=== PATIENT | male | born 1950 | race Caucasian/White ===

== ENCOUNTER 2023-10-28 11:14 | Day surgery (SDC) | payer OTHER ==
[2023-10-20 15:51] VITALS: BMI 24.5
[2023-10-28] MEDS ORDERED: MIDAZOLAM HCL 2 MG/2 ML SINGLE DOSE VIAL ONE (12:29)
[2023-10-28] MEDS ORDERED: PROPOFOL 20 ML ONE (12:29)
[2023-10-28] MEDS ORDERED: ceFAZolin SODIUM 1 GM VIAL ONE (12:29)
[2023-10-28] MEDS ORDERED: DEXAMETHASONE SOD PHOSPHATE 4 MG/1 ML VIAL ONE ×2 (12:42→13:00)
[2023-10-28] MEDS ORDERED: BUPIVACAINE HCL/PF 0.25% (2.5MG/ML) 10 ML VIAL ONE (12:42)
[2023-10-28] MEDS ORDERED: LIDOCAINE HCL 2% (20ML MULTI-DOSE VIAL) ONE (12:43)
[2023-10-28] MEDS ORDERED: PROPOFOL 40 ML ONE (13:22)
[2023-10-28] MEDS ORDERED: ONDANSETRON 4 MG/2 ML VIAL ONE (13:35)
[2023-10-28] MEDS ORDERED: oxyCODONE HCL 5 MG TABLET PO PRN (15:38)
[2023-10-28] MEDS ORDERED: ONDANSETRON 4 MG/2 ML VIAL IVPUSH PRN (15:38)
[2023-10-28] MEDS ORDERED: LACTATED RINGERS SOLUTION 1,000 ML IV SCH (15:45)
[2023-10-28 17:40] VITALS: RESP 20; TEMP 97.6
[2023-10-28 18:26] VITALS: BP 119/81; PULSE 76
[2023-10-28 19:10] LABS: HIV INTERPRETATION NEGATIVE (NEGATIVE)
[2023-11-01] MEDS ORDERED: CEFAZOLIN 1 GM/D5W 1 GM/50 ML BAG IVPB ONE (16:46)
== END 2023-10-28 17:45 | disposition home or self-care (01) ==
LOC: FASU 11:14
PROVIDERS: ATTEND Podiatrist
PROC: 0SNP0ZZ Release Right Toe Phalangeal Joint, Open Approach (ICD-10-PCS; 2023-10-28)
PROC: 0L8V0ZZ Division of Right Foot Tendon, Open Approach (ICD-10-PCS; 2023-10-28)
PROC: 0QBN0ZZ Excision of Right Metatarsal, Open Approach (ICD-10-PCS; principal; 2023-10-28 13:37)
PROC: 0SRP0JZ Replacement of Right Toe Phalangeal Joint with Synthetic Substitute, Open Approach (ICD-10-PCS; 2023-10-28 13:37)
DX: M20.11 Hallux valgus (acquired), right foot (principal); M20.41 Other hammer toe(s) (acquired), right foot; M19.071 Primary osteoarthritis, right ankle and foot
CPT/HCPCS: 36415; 84460; 86803; 87340; 87389; 88304-TC; 88311-TC; 94760